=== PATIENT | female | born 1990 | race Caucasian/White ===

== ENCOUNTER 2016-05-11 21:38 | Emergency (ER) | payer OTHER ==
--- NOTE | 2016-05-12 00:14 | PROVIDER DOCUMENTATION ---
HPI-Musculoskeletal Pain/Inj <Brianna Cameron - Last Filed: 05/12/16 00:10> - GENERAL Source: patient - HX OF PRESENT ILLNESS-MUSKULOSKELTAL Quality of Pain: reports: aching Severity in ED: mild, moderate Onset/Duration: just prior to arrival Timing: still present Modifying Factors: improves with: nothing Any recent injury?: No Locality of Occurance: Home Similar Symptoms Previously?: No Recently seen or treated by another doctor?: No - FALL INJURY Location of Pain/Injury: reports: upper extremity Pain Radiation: reports: no radiation Reason for Fall: reports: lost balance Symptoms prior to fall:: reports: none Loss of Consciousness: no loss of consciousness Injury Associated Symptoms: denies: arm pain, back/neck pain, diaphoresis, dizziness, nausea, unable to bear weight, trouble walking <Tomasz Byrd - Last Filed: 05/12/16 00:26> - GENERAL Chief Complaint: Extremity Injury Stated Complaint: FALL Time Seen by Provider: 05/11/16 23:30 - HX OF PRESENT ILLNESS-MUSKULOSKELTAL Nature of Presenting Problem: 25 y/o WF present to the ED with right wrist pain after a fall. Pt states she was getting into a [facility] backseat and fell bracing her fall with the right hand. (Tomasz Byrd) Review of Systems - Adult - REVIEW OF SYSTEMS - ADULT Constitutional: denies: chills, fever Eyes: reports: no symptoms reported Ears, Nose, Mouth & Throat: reports: no symptoms reported Cardiovascular: reports: no symptoms reported Respiratory: reports: no symptoms reported Gastrointestinal: reports: no symptoms reported Genitourinary: reports: no symptoms reported Musculoskeletal: reports: joint pain. denies: bone pain, back pain, joint swelling Integumentary: reports: no symptoms reported Neurological: reports: no symptoms reported Psychiatric: reports: no symptoms reported Endocrine: reports: no symptoms reported Hematologic/Lymphatic: reports: no symptoms reported Allergic/Immunologic: reports: no symptoms reported All Other Systems: Reviewed and Negative <Tomasz Byrd - Last Filed: 05/12/16 00:26> Past History - Adult - PAST MEDICAL HISTORY-ADULT Major Childhood Illnesses: reports: denies history Cardiovascular: reports: [place] Respiratory: reports: denies history Gastrointestinal: reports: denies history Obstetrical/Gynecological: reports: denies history Genitourinary: reports: denies history Musculoskeletal: reports: chronic pain (back pain ) Neurological: reports: denies history Psychiatric: reports: depression Endocrine/Immune: reports: Diabetes Other Conditions: reports: denies history - PRIOR SURGERIES/PROCEDURES Surgical/Procedure History: reports: other (arthroscopy, myringotimy, wisdom teeth) - IMMUNIZATION STATUS Childhood Immunizations: See Nurse Assessment Flu Vaccine: See Nurse Assessment - FAMILY HISTORY Family History: reviewed, not pertinent <Brianna Cameron - Last Filed: 05/12/16 00:10> - PAST MEDICAL HISTORY-ADULT Review of Records: reports: Old Records Reviewed, Nursing Assessment Review, Medications Reviewed Major Childhood Illnesses: reports: denies history Cardiovascular: reports: denies history Respiratory: reports: denies history Gastrointestinal: reports: denies history Obstetrical/Gynecological: reports: denies history Genitourinary: reports: denies history Musculoskeletal: reports: denies history Neurological: reports: denies history Endocrine/Immune: reports: denies history Other Conditions: reports: denies history - FAMILY HISTORY Family History: reviewed, not pertinent <Tomasz Byrd - Last Filed: 05/12/16 00:26> Physical Exam-Injury Related - Physical Exam-Injury Related Initial Vital Signs Reviewed: Yes General Appearance: appears well, alert, no apparent distress, obese (morbid) Eyes: PERRL/EOMI, pink conjunctivae Head, Ears, Nose, Mouth & Throat: moist mucous membranes, normal ENT inspection , TMs normal, pharynx normal Neck: non-tender, full range of motion, supple, normal inspection Respiratory: lungs clear, normal breath sounds, no pleuratic chest pain, no respiratory distress, no accessory muscle use Cardiovascular: normal peripheral pulses, regular rate, rhythm Abdominal Exam: normal bowel sounds, non tender, soft Back Exam: normal inspection, no CVA tenderness, no vertebral tenderness Extremity: normal range of motion, normal gait, normal inspection, tenderness ( with ROM). negative: deformity, erythema, inflammation, swelling Integumentary: normal color, warm/dry Neurologic: grossly normal, no motor/sensory deficits Psych/Mental Status: normal mood/affect, normal thought content, normal thought process, oriented x 3 <Tomasz Byrd - Last Filed: 05/12/16 00:26> Progress - XRAY 1 XRAY: Right XRAY Study: Wrist, Hand XRAY Interpretation: no fracture <Brianna Cameron - Last Filed: 05/12/16 00:10> <Tomasz Byrd - Last Filed: 05/12/16 00:26> - PLAN OF CARE/RESULTS Progress/Plan/Lab Results: Orders Category Date Time Status Juan Wrap Application DIRECTED Care 05/12/16 00:10 Active HAND COMPLETE RIGHT [RAD] Stat Exams 05/11/16 22:11 Taken WRIST COMPLETE RIGHT [RAD] Stat Exams 05/11/16 22:11 Taken Vital Signs Temp Pulse Resp BP Pulse Ox 05/11/16 21:57 98.3 F 83 22 153/76 99 amoxicillin Allergy (Mild, Verified 05/11/16 22:01) SWELLING doxycycline Allergy (Mild, Verified 05/11/16 22:01) RASH naproxen Allergy (Mild, Verified 05/11/16 22:01) RASH, UPSET STOMACH Penicillins Allergy (Mild, Verified 05/11/16 22:01) RASH ciprofloxacin [From Cipro] Allergy (Verified 05/11/16 22:02) RASH ciprofloxacin HCl * [From Cipro] Allergy (Verified 05/11/16 22:02) RASH trimethoprim [From Bactrim] Allergy (Verified 05/11/16 22:02) RASH sulfamethoxazole [From Bactrim] Adverse Reaction (Intermediate, Verified 22:01) NAUSEA/VOMITING dicloxacillin [Dicloxacillin] Adverse Reaction (Mild, Verified 05/11/16 22:01) NAUSEA RASH Fluoxetine [Prozac] 30 mg PO DAILY 06/07/14 Carbamazepine [Tegretol] 200 mg PO BID 08/13/14 Quetiapine [Seroquel] 300 mg PO DAILY 11/08/14 Omeprazole [Prilosec] 40 mg PO DAILY 10/15/15 Lisinopril/Hydrochlorothiazide [Lisinopril-Hctz 20-25 mg Tab] 1 tab PO DAILY 08/22 (Brianna Cameron) Orders Category Date Time Status Juan Wrap Application DIRECTED Care 05/12/16 00:10 Active HAND COMPLETE RIGHT [RAD] Stat Exams 05/11/16 22:11 Taken WRIST COMPLETE RIGHT [RAD] Stat Exams 05/11/16 22:11 Taken Vital Signs Temp Pulse Resp BP Pulse Ox 05/11/16 21:57 98.3 F 83 22 153/76 99 amoxicillin Allergy (Mild, Verified 05/11/16 22:01) SWELLING doxycycline Allergy (Mild, Verified 05/11/16 22:01) RASH naproxen Allergy (Mild, Verified 05/11/16 22:01) RASH, UPSET STOMACH Penicillins Allergy (Mild, Verified 05/11/16 22:01) RASH ciprofloxacin [From Cipro] Allergy (Verified 05/11/16 22:02) RASH ciprofloxacin HCl * [From Cipro] Allergy (Verified 05/11/16 22:02) RASH trimethoprim [From Bactrim] Allergy (Verified 05/11/16 22:02) RASH sulfamethoxazole [From Bactrim] Adverse Reaction (Intermediate, Verified 22:01) NAUSEA/VOMITING dicloxacillin [Dicloxacillin] Adverse Reaction (Mild, Verified 05/11/16 22:01) NAUSEA RASH Fluoxetine [Prozac] 30 mg PO DAILY 06/07/14 Carbamazepine [Tegretol] 200 mg PO BID 08/13/14 Quetiapine [Seroquel] 300 mg PO DAILY 11/08/14 Omeprazole [Prilosec] 40 mg PO DAILY 10/15/15 Lisinopril/Hydrochlorothiazide [Lisinopril-Hctz 20-25 mg Tab] 1 tab PO DAILY 08/22 Meloxicam [Mobic] 15 mg PO DAILY #14 tablet 05/12/16 (Tomasz Byrd) Departure - Departure Time of Disposition Order: 00:10 Certified Medical Emergency: Emergent <Brianna Cameron - Last Filed: 05/12/16 00:10> - Departure Time of Disposition Order: 00:19 Certified Medical Emergency: Emergent <Tomasz Byrd - Last Filed: 05/12/16 00:26> - Departure DIAGNOSIS: Right wrist sprain Qualifiers: Encounter type: initial encounter Qualified Code(s): S63.501A - Unspecified sprain of right wrist, initial encounter Fall Qualifiers: Encounter type: initial encounter Qualified Code(s): W19.XXXA - Unspecified fall, initial encounter Obesity Qualifiers: Obesity severity: morbid Disposition: HOME 01 Condition: Stable Additional Instructions: ED Follow Up Instructions: You have been treated by a care provider in the Emergency Department. These instructions are being provided to you so you can have an understanding of how to care for yourself upon discharge. Upon discharge from the Emergency Department, you are responsible for making arrangements for follow-up care by a physician of your choice. Take all prescribed medications as directed. Return to the Emergency Department immediately for any new or worsening symptoms. You may call the Physician Referral phone number at [phone] to obtain a list of Physicians who are taking new patients. Prescriptions: Meloxicam [Mobic] 15 mg PO DAILY #14 tablet Referrals: Sandeep Mckinnon MD [Primary Care Provider] - Melisa Alfaro MD [STAFF PHYSICIAN] - Attestation - Physician/ Mid-level Attestation Patient care was provided by Mid-level provider (HAIRSPRING STUDDER/PA):: Yes Mid-level provider:: Brianna Cameron Mid-level documentation review:: The Mid-level provider documentation, treatment plan and medical decision making was reviewed by the physician who agrees with all treatment and medical decision making by the [facility]. <Brianna Cameron - Last Filed: 05/12/16 00:10> - Scribe Verification/Attestation Scribe:: Tomasz Byrd Acting as Scribe for:: Brianna Cameron Scribe documention review:: This chart was documented by a scribe and accurately reflects the service the provider performed and the decisions made by the provider. - Physician/ Mid-level Attestation Patient care was provided by Mid-level provider (HAIRSPRING STUDDER/PA):: Yes Mid-level provider:: Brianna Cameron Mid-level documentation review:: The Mid-level provider documentation, treatment plan and medical decision making was reviewed by the physician who agrees with all treatment and medical decision making by the [facility]. <Tomasz Byrd - Last Filed: 05/12/16 00:26> Physician Attestation
--- NOTE | 2016-05-12 00:17 | PROVIDER DOCUMENTATION ---
HPI-Musculoskeletal Pain/Inj - GENERAL Chief Complaint: Extremity Injury Stated Complaint: FALL Time Seen by Provider: 05/11/16 23:30 Source: patient - HX OF PRESENT ILLNESS-MUSKULOSKELTAL Nature of Presenting Problem: 25 y/o WF present to the ED with right wrist pain. Pt states she was getting in a [employer] when she fell out landing on her wrist. Quality of Pain: reports: aching Severity in ED: mild Onset/Duration: just prior to arrival Timing: still present Modifying Factors: improves with: nothing Any recent injury?: No Locality of Occurance: Home Similar Symptoms Previously?: No Recently seen or treated by another doctor?: No - FALL INJURY Location of Pain/Injury: reports: upper extremity (right wrist) Pain Radiation: reports: no radiation Past History - Adult - PAST MEDICAL HISTORY-ADULT Major Childhood Illnesses: reports: denies history Cardiovascular: reports: [place] Respiratory: reports: denies history Gastrointestinal: reports: denies history Obstetrical/Gynecological: reports: denies history Genitourinary: reports: denies history Musculoskeletal: reports: chronic pain (back pain ) Neurological: reports: denies history Psychiatric: reports: depression Endocrine/Immune: reports: Diabetes Other Conditions: reports: denies history - PRIOR SURGERIES/PROCEDURES Surgical/Procedure History: reports: other (arthroscopy, myringotimy, wisdom teeth) - IMMUNIZATION STATUS Childhood Immunizations: See Nurse Assessment Flu Vaccine: See Nurse Assessment - FAMILY HISTORY Family History: reviewed, not pertinent Attestation - Scribe Verification/Attestation Scribe:: Tomasz Byrd Acting as Scribe for:: Brianna Cameron Scribe documention review:: This chart was documented by a scribe and accurately reflects the service the provider performed and the decisions made by the provider. - Physician/ Mid-level Attestation Patient care was provided by Mid-level provider (INTERLACER/PA):: Yes Mid-level provider:: Brianna Cameron Mid-level documentation review:: The Mid-level provider documentation, treatment plan and medical decision making was reviewed by the physician who agrees with all treatment and medical decision making by the MLP.
[2016-05-12 01:08] VITALS: BP 129/82
--- NOTE | 2016-05-12 08:45 | Diag Imaging Result Document ---
PROCEDURE NAME: WRIST COMPLETE RIGHT - 05/11/2016 RIGHT WRIST, 3 VIEWS: COMPARISON: 01/13/2012. FINDINGS: Bones are intact and normally aligned. Joint spaces and soft tissues are clear. IMPRESSION: Negative exam.
--- NOTE | 2016-05-12 08:45 | Diag Imaging Result Document ---
PROCEDURE NAME: HAND COMPLETE RIGHT - 05/11/2016 RIGHT HAND, 3 VIEWS: COMPARISON: 01/13/2012. FINDINGS: Bones are intact and normally aligned. Joint spaces and soft tissues are clear. IMPRESSION: Negative exam.
== END 2016-05-12 01:07 | disposition home or self-care (01) ==
LOC: P.ED 21:38
DX: M25.531 Pain in right wrist (principal); S63.501A Unspecified sprain of right wrist, initial encounter; E66.01 Morbid (severe) obesity due to excess calories; Z68.43 Body mass index [BMI] 50.0-59.9, adult; I25.2 Old myocardial infarction; M54.9 Dorsalgia, unspecified; G89.29 Other chronic pain; E11.9 Type 2 diabetes mellitus without complications; F32.9 Major depressive disorder, single episode, unspecified; W19.XXXA Unspecified fall, initial encounter; Z79.899 Other long term (current) drug therapy
CPT/HCPCS: 99283

== ENCOUNTER 2016-07-28 22:10 | Emergency (ER) ==
[2016-07-28] MEDS ORDERED: DECADRON IM ONE (22:43)
[2016-07-28] MEDS ORDERED: NORFLEX IM ONE (22:43)
--- NOTE | 2016-07-28 22:50 | PROVIDER DOCUMENTATION ---
HPI-General Adult - General Source: patient - History of Present Illness -Gen Adult Nature of Presenting Problems: 89 Y/O F presents to ED with General Adult. Pt states that she was lifting [employer] off of 's foot and felt a pop in her back and is now having a stabbing feeling. Pt also states that she4 is having eye pain, [place] now her eye itches, seeing if she has pink eye. Location of Pain/Injury: reports: back Pain Radiation: reports: no radiation Quality of Pain: reports: stabbing Severity: reports: mild Onset/Duration: reports: this evening Timing: reports: still present Context/Activities at Onset: reports: moderate activity Associated Symptoms: reports: back/neck pain, EENT symptoms. denies: constipation, cough, fever/chills, genitourinary problems, muscle aches, nausea , rash, shortness of breath, pain with inspiration, swelling/mass in abdomen, trouble walking Similar Symptoms Previously?: No Recently seen or treated by another doctor?: No <Apple Henry - Last Filed: 07/28/16 22:46> <Marisela Lamb - Last Filed: 07/28/16 23:10> - General Chief Complaint: Eye Complaint Stated Complaint: EYE PAIN Time Seen by Provider: 07/28/16 22:40 Allergies/Adverse Reactions: Patient Allergies Allergy/AdvReac Type Severity Reaction Status Date / Time amoxicillin Allergy Mild SWELLING Verified 05/26/16 23:23 doxycycline Allergy Mild RASH Verified 05/26/16 23:23 naproxen Allergy Mild RASH, Verified 05/26/16 23:23 UPSET STOMACH Penicillins Allergy Mild RASH Verified 05/26/16 23:23 ciprofloxacin [From Cipro] Allergy RASH Verified 05/26/16 23:23 ciprofloxacin HCl * Allergy RASH Verified 05/26/16 23:23 [From Cipro] trimethoprim [From Bactrim] Allergy RASH Verified 05/26/16 23:23 sulfamethoxazole AdvReac Intermediate NAUSEA/VOMI Verified 05/26/16 23:23 [From Bactrim] TING dicloxacillin [Dicloxacillin] AdvReac Mild NAUSEA Verified 05/26/16 23:23 Home Medications: Home Medication List Medication Instructions Recorded Confirmed Last Taken Type Fluoxetine [Prozac] 40 mg PO DAILY 06/07/14 05/26/16 07/28/16 History Carbamazepine [Tegretol] 200 mg PO BID 08/13/14 05/26/16 07/28/16 History Quetiapine [Seroquel] 300 mg PO DAILY 11/08/14 05/26/16 07/28/16 History Omeprazole [Prilosec] 40 mg PO DAILY 10/15/15 05/26/16 07/28/16 History Lisinopril/Hydrochlorothiazide 1 tab PO DAILY 05/11/16 05/26/16 07/28/16 History [Lisinopril-Hctz 20-25 mg Tab] Cyclobenzaprine [Flexeril] 10 mg PO TID #20 tablet 07/28/16 Unknown Rx Jelani/Polymyx B Sulf/Dexameth 5 ml OP BID #1 drops.susp 07/28/16 Unknown Rx [Jvfcnm-Xxyrk-Fmbojsms Eye Drop] Review of Systems - Adult - REVIEW OF SYSTEMS - ADULT Constitutional: denies: chills, fever Eyes: reports: eye pain. denies: discharge, dry eyes, decreased vision, blurred vision, redness Ears, Nose, Mouth & Throat: reports: no symptoms reported Cardiovascular: reports: no symptoms reported Respiratory: reports: no symptoms reported Gastrointestinal: reports: no symptoms reported Genitourinary: reports: no symptoms reported Musculoskeletal: reports: back pain. denies: bone pain, joint pain, joint swelling, muscle aches Integumentary: reports: no symptoms reported Neurological: reports: no symptoms reported Psychiatric: reports: no symptoms reported Endocrine: reports: no symptoms reported Hematologic/Lymphatic: reports: no symptoms reported Allergic/Immunologic: reports: no symptoms reported All Other Systems: Reviewed and Negative <Apple Henry - Last Filed: 07/28/16 22:46> Past History - Adult - PAST MEDICAL HISTORY-ADULT Review of Records: reports: Old Records Reviewed, Nursing Assessment Review, Medications Reviewed, Social history reviewed & non-contributory. Major Childhood Illnesses: reports: denies history Cardiovascular: reports: HTN Respiratory: reports: denies history Gastrointestinal: reports: GERD Obstetrical/Gynecological: reports: denies history Genitourinary: reports: denies history Musculoskeletal: reports: denies history Neurological: reports: denies history Psychiatric: reports: depression Endocrine/Immune: reports: denies history Other Conditions: reports: denies history - PRIOR SURGERIES/PROCEDURES Surgical/Procedure History: reports: other (arthroscopy, myringotimy, wisdom teeth) - IMMUNIZATION STATUS Childhood Immunizations: See Nurse Assessment Flu Vaccine: See Nurse Assessment - FAMILY HISTORY Family History: reviewed, not pertinent - SOCIAL HISTORY Smoking: non-smoker Substance Use: none/never Alcohol Use Frequency: never Living Situation: family <Apple Henry - Last Filed: 07/28/16 22:46> Physical Exam-General - PHYSICAL EXAM-ADULT Initial Vital Signs Reviewed: Yes - CONSTITUTIONAL General Appearance: appears well, alert, no apparent distress, obese - EYES Eyes: PERRL/EOMI, pink conjunctivae, fundi clear, no AV nicking - HEAD, EARS, NOSE, MOUTH & THROAT HENMT: normocephalic/atraumatic, moist mucous membranes, normal ENT inspection, TMs normal - NECK Neck: non-tender, full range of motion, supple, normal inspection - RESPIRATORY Respiratory: chest non-tender, lungs clear, normal breath sounds - CARDIOVASCULAR Cardiovascular: normal peripheral pulses, regular rate, rhythm - GASTROINTESTINAL (ABDOMEN) Abdominal Exam: normal bowel sounds, non tender, soft - LYMPHATIC Lymphatic: no adenopathy - MUSCULOSKELETAL Back Exam: other (right paraspinal muscle spasm) Extremity: normal range of motion, non-tender, normal gait - SKIN Integumentary: normal color, normal turgor - NEUROLOGIC Neurologic: sheet roller operator II-XII nml as tested - PSYCHIATRIC Psych/Mental Status: normal mood/affect, normal thought content, normal thought process, oriented x 3 <Apple Henry - Last Filed: 07/28/16 22:46> Progress - PLAN OF CARE/RESULTS Progress/Plan/Lab Results: Orders Category Date Time Status Dexamethasone [Decadron] Med 07/28/16 22:43 Discontinued 4 mg IM NOW ONE Orphenadrine [Norflex] Med 07/28/16 22:43 Discontinued 60 mg IM NOW ONE Vital Signs - 24 hr 07/28/16 22:22 Temperature 98.0 F Pulse Rate 68 Respiratory 18 Rate Blood Pressure 117/68 O2 Sat by Pulse 98 Oximetry <Apple Henry - Last Filed: 07/28/16 22:46> Departure <Apple Henry - Last Filed: 07/28/16 22:46> - Departure Time of Disposition Order: 23:10 Certified Medical Emergency: Emergent <Marisela Lamb - Last Filed: 07/28/16 23:10> - Departure DIAGNOSIS: Lumbar paraspinal muscle spasm Conjunctivitis Qualifiers: Conjunctivitis type: acute Acute conjunctivitis type: viral Laterality: left Qualified Code(s): B30.9 - Viral conjunctivitis, unspecified Disposition: HOME 01 Condition: Stable Additional Instructions: Follow up with your primary care physician ED Follow Up Instructions: You have been treated by a care provider in the Emergency Department. These instructions are being provided to you so you can have an understanding of how to care for yourself upon discharge. Upon discharge from the Emergency Department, you are responsible for making arrangements for follow-up care by a physician of your choice. Take all prescribed medications as directed. Return to the Emergency Department immediately for any new or worsening symptoms. You may call the Physician Referral phone number at [phone] to obtain a list of Physicians who are taking new patients. Prescriptions: Cyclobenzaprine [Flexeril] 10 mg PO TID #20 tablet Jelani/Polymyx B Sulf/Dexameth [Dzpscu-Fvjmw-Pxepyesb Eye Drop] 5 ml OP BID #1 drops.susp Referrals: Sandeep Mckinnon MD [Primary Care Provider] - Instructions: Cyclobenzaprine tablets, Eye - Viral Conjunctivitis, Eyedrops Attestation - Scribe Verification/Attestation Scribe:: Apple Henry Acting as Scribe for:: Milo Saavedra Scribe documention review:: This chart was documented by a scribe and accurately reflects the service the provider performed and the decisions made by the provider. - Physician/ JAMES Attestation Patient care was provided by Advanced Practice Provider:: Yes Advanced Practice Provider:: Marisela Lamb Advanced Practice Provider documentation review:: The Mid-level provider documentation, treatment plan and medical decision making was reviewed by the physician who agrees with all treatment and medical decision making by the MLP. <Apple Henry - Last Filed: 07/28/16 22:46> Physician Attestation
[2016-07-29 00:23] VITALS: BP 124/71
== END 2016-07-29 00:22 | disposition home or self-care (01) ==
LOC: P.ED 22:10
DX: M62.830 Muscle spasm of back (principal); B30.9 Viral conjunctivitis, unspecified; M54.9 Dorsalgia, unspecified; H57.12 Ocular pain, left eye; I10 Essential (primary) hypertension; K21.9 Gastro-esophageal reflux disease without esophagitis; F32.9 Major depressive disorder, single episode, unspecified; E66.9 Obesity, unspecified; Z79.899 Other long term (current) drug therapy; X58.XXXA Exposure to other specified factors, initial encounter
CPT/HCPCS: 96372; J1100; J2360